=== PATIENT | male | born 1930 | race Caucasian/White ===

== ENCOUNTER 2018-09-03 07:03 | Inpatient (IN) ==
[2018-09-03] MEDS ORDERED: Metoprolol Tartrate 25 MG Tablet PO ONE (08:00)
[2018-09-03] MEDS ORDERED: Chlorhexidine Gluconate 2% 1 Pack (2 Cloths) TOPICAL ONE (08:00)
[2018-09-03] MEDS ORDERED: Sodium Chlor 0.9% Inj 500 ML IV.CONT ONE (08:00)
[2018-09-03] MEDS ORDERED: Protamine Sulfate Inj 50 MG/5 ML Vial ONE ×2 (08:15→10:33)
[2018-09-03] MEDS ORDERED: Heparin 10,000 UNITS/10 ML Vial (for IV use) ONE (08:15)
[2018-09-03] MEDS ORDERED: ceFAZolin 2 GM Premix Inj 2 GM/50 ML PIGGYBACK IV.SIG ONE (08:15)
[2018-09-03] MEDS ORDERED: Heparin/NS PF Inj 500 ML ONE (08:15)
--- NOTE | 2018-09-03 08:36 | P.PNVS ---
- Pre-operative Note Planned Procedure: EVAR Interval History: Pt has been feeling well, no changes that would preclude OR. Labs: Hct 36 plt 173 INR 1.2 cr 1.6 Blood: T&S EKG: no changes Imaging: CT reviewed Orders: NPO Ancef 2gIV OCTOR Post-operative Destination: PACU Consent: Informed consent has been obtained from Db Tena. I have explained the procedure in detail and discussed the risks, benefits, and potential complications. All questions have been answered. Patient Contact Information: Daughter [phone]
[2018-09-03] MEDS ORDERED: Iohexol 300 MG/ML 50 ML Vial (for Rad Diag) IVCONTRAST ONE ×2 (10:38→10:39)
[2018-09-03] MEDS ORDERED: Bisacodyl 10 MG Supp RECTAL PRN (10:45)
--- NOTE | 2018-09-03 10:45 | P.OP ---
- Preoperative Diagnosis (1) AAA (abdominal aortic aneurysm) without rupture - Postoperative Diagnosis (1) AAA (abdominal aortic aneurysm) without rupture Date of procedure: 09/03/18 Procedure: 1. EVAR ([id number]) 2. B DIRECTOR OF LEADERSHIP DEVELOPMENT Perclose (20F R and 14F L) Implants: Feusd 28x96, 16x90, 24x74 Anesthesia: GETA Surgeon: Kevin Lewis MD Program Eligibility Specialist: Abhi Patton Estimated blood loss (mL): 30 IV fluids (mL): 1,600 Urine output (mL): 220 Pathology: none sent Operation and Findings: successful EVAR + Doppler signals B LE after EVAR
[2018-09-03] MEDS ORDERED: fentaNYL Citrate Inj 100 MCG/2 ML Ampul ONE (11:04)
[2018-09-03] MEDS ORDERED: *morphine SULFATE 4 MG/ML PERIprocedure ONLY ONE (13:03)
--- NOTE | 2018-09-03 13:07 | MP ---
cc: Kevin Lewis MD DATE OF OPERATION: 09/03/2018 PREOPERATIVE DIAGNOSIS: Abdominal aortic aneurysm. POSTOPERATIVE DIAGNOSIS: Abdominal aortic aneurysm. PROCEDURE: 1. Endovascular aneurysm repair (EVAR) with [id number]-oidww device in 3 components. 2. Right common femoral artery percutaneous access with a 20-Gambian sheath. 3. Left pelvic femoral artery access with a 14-Gambian sheath. ATTENDING SURGEON: Kevin Lewis MD PRODUCTION CLOTH CUTTER SURGEON: Abhi Patton MD ANESTHESIA: General. INDICATION: Mr. Tena is an 88-year-old gentleman with a nearly 8 cm abdominal aortic aneurysm that appears amenable to endovascular repair. He was taken to the operating room for treatment. DESCRIPTION OF PROCEDURE: Informed consent was obtained from the patient, he was taken to the operating room and placed supine on the operating table. An appropriate timeout was taken to ensure the patient's identity, operative site, and planned procedure. The administration of 2 grams of Ancef was initiated prior to the skin incision, which we discontinued after a single preoperative dose. Everyone in the room agreed with the time out and we proceeded. He was prepped from his nipples to his knees. A 21-gauge micropuncture needle was used to access both common femoral arteries. This was exchanged using Seldinger technique for a micropuncture sheath, through which a 5-Gambian sheath was used to dilate the skin, subcutaneous tract, and arteriotomy. Two Perclose ProGlide sutures were inserted and tagged, but not tied down. These will be used later. A short 8-Gambian 10 cm sheath was used on the right-hand side and an 8-Gambian 25 cm sheath was used on the left-hand side. The patient was then heparinized. The STORQ wires were advanced to the proximal descending aorta and exchanged for Lunderquist wires. A straight flush marker catheter was placed on the left and the aortogram was obtained. The main device, which was a Amprius-AppLovin 28 x 96 was selected and prepped in standard fashion. The 8-Gambian sheath on the right was removed. Ibis dilators were used to dilate the skin, subcutaneous tract and arteriotomy, and the main device was inserted, oriented appropriately so the contralateral gate expanded on the patient's left-hand side. Interval angiography was performed and the device was deployed down the contralateral gate. Again, interval angiography was performed, which located the renal arteries and the top cap was deployed. A glidewire was then introduced through the flushed catheter on the left, and the flush catheter was exchanged for a Cobra catheter and ultimately a Vanshee catheter was used to cannulate the contralateral gate. This was confirmed angiographically and a Lunderquist wire was placed through this. A marker catheter was then placed and this identified the left hypogastric artery. The contralateral limb was then selected to be a 16 x 90. The 8-Gambian sheath was removed and Ibis dilators were used to tie the skin, subcutaneous tract, arteriotomy up to the 14-Gambian sheath. Then, the contralateral limb, which was a 16 x 90 was introduced so the bottom of the limb was proximal to the epigastric artery. Takeoff device was deployed without difficulty. The remainder of the main device was deployed and the top cap was recaptured. The delivery system was removed, leaving the 20-Gambian sheath in place in the right groin. A flush catheter was then placed and an angiogram was performed, which located the right hypogastric artery. The right limb, which was a 24 x 74 was introduced and deployed so the bottom of the stent was proximal to the hypogastric artery. The catheter and the delivery system was removed, leaving the 20-Gambian sheath introduced in the artery. Proximal and distal ends, as well as and junctions were angioplastied. A completion angiogram was obtained. The wire, catheter, and sheath were removed. The groins were closed by tying down the Perclose sutures, providing hemostasis in the groin and Doppler signals in the feet. The heparin was reversed. Protamine and 4-0 Monocryl was then placed in both groins. Sponge and needle counts were correct at the end of the case. I was present, scrubbed, and performed the entire procedure. MD MICHEAL Lima/tom/adiel , 11:16 AM , 11:25 AM CHRISTY
[2018-09-03] MEDS ORDERED: Morphine Sulfate Inj 2 MG/ML Vial IV.PUSH PRN (14:00)
[2018-09-03] MEDS: Senna/Docusate Sodium 8.6/50 MG Tablet PO SCH (23:24)
[2018-09-04 00:55] VITALS: RESP 16
[2018-09-04 04:17] LABS: Hematocrit 33.3 % (39.0-51.0); Hemoglobin 10.8 gm/dL (13.0-17.0); Mean Corpuscular HGB Conc 32.4 % (32.0-36.0); Mean Corpuscular Hemoglobin 28.4 pg (27.0-34.0); Mean Corpuscular Volume 87.6 fL (80.0-100.0); Mean Platelet Volume 8.5 fL (7.0-11.0); Platelet Count 164 th/mm3 (150-450); Red Blood Count 3.79 mil/mm3 (4.50-5.90); White Blood Count 12.5 th/mm3 (4.0-11.0)
[2018-09-04 04:38] LABS: Calcium 8.3 mg/dL (8.5-10.1); Carbon Dioxide 26.3 meq/L (21.0-32.0); Potassium 4.8 meq/L (3.5-5.1)
--- NOTE | 2018-09-04 07:39 | P.PNVS ---
Subjective Post Op Day #: 1 Procedure: EVAR with B SPEECH AND LANGUAGE SPECIALIST percutaneous access Subjective/Hospital Course: looks great mary po no groin pain + voiding since Chahal out Objective Vital Signs / I&O: Vital Signs 09/03/18 08:02 09/03/18 10:58 09/03/18 11:00 Temperature 97 F L 97.4 F L Pulse Rate 70 67 66 Respiratory Rate 16 20 19 Blood Pressure 153/74 H 126/60 126/59 L Pulse Oximetry 98 99 100 09/03/18 11:15 09/03/18 11:30 09/03/18 11:35 Temperature Pulse Rate 60 56 L Respiratory Rate 20 15 Blood Pressure 133/63 133/64 Pulse Oximetry 100 100 99 09/03/18 11:45 09/03/18 12:00 09/03/18 13:00 Temperature Pulse Rate 55 L 59 L 58 L Respiratory Rate 18 14 17 Blood Pressure 136/67 136/64 146/67 H Pulse Oximetry 100 100 95 09/03/18 13:34 09/03/18 14:00 09/03/18 14:27 Temperature 97.1 F L Pulse Rate 59 L 62 Respiratory Rate 18 17 Blood Pressure 136/63 140/65 Pulse Oximetry 99 99 99 09/03/18 16:00 09/03/18 20:00 09/04/18 00:00 Temperature 97.9 F 97.7 F 97.7 F Pulse Rate 74 64 85 Respiratory Rate 17 16 16 Blood Pressure 106/60 152/75 H 149/70 H Pulse Oximetry 96 98 97 09/04/18 03:14 Temperature Pulse Rate Respiratory Rate 16 Blood Pressure Pulse Oximetry Intake & Output 09/03/18 09/04/18 09/04/18 18:59 06:59 18:59 Intake Total 1650 / 1650 Output Total 650 / 650 Balance 1000 / 1000 Weight 88.167 kg 88.5 kg Intake: IV 1050 / 1050 Heparin/NS PF Inj 500 ML @ 0 0 / 0 mls/hr .ROUTE .STK-MED ONE Rx#: [id number] LR 1000 mL Inj 1,000 ML @ 30 1000 / 1000 mls/hr IV.CONT .Q24H ONE Rx#: [id number] Ancef 2 GM Premix Inj 2 gm In 50 / 50 50 ml @ 0 mls/hr IV.SIG .STK- MED ONE Rx#:[id number] Anesthesia Amount 600 / 600 Output: Estimated Blood Loss 30 / 30 Urine Amount (Catheter) 620 / 620 Indwelling Urethral Catheter 620 / 620 Other: Date of Last Bowel Movement 09/03/18 Weight On Admission 86.9 kg Exam: sitting in bed, comfortably B groins soft, NT feet warm Laboratory Results - last 24 hr 09/03/18 09/03/18 09/04/18 07:40 17:55 02:55 WBC 12.5 H RBC 3.79 L Hgb 10.8 L Hct 33.3 L MCV 87.6 MCH 28.4 MCHC 32.4 RDW 14.0 Plt Count 164 MPV 8.5 Sodium Potassium Chloride Carbon Dioxide Anion Gap BUN Creatinine Estimated GFR POC Glucose 144 H Random Glucose Calcium Blood Type B Negative Antibody Screen Negative 09/04/18 02:55 WBC RBC Hgb Hct MCV MCH MCHC RDW Plt Count MPV Sodium 138 Potassium 4.8 Chloride 103 Carbon Dioxide 26.3 Anion Gap 9 BUN 26 H Creatinine 1.57 H Estimated GFR 42 L POC Glucose Random Glucose 122 H Calcium 8.3 L Blood Type Antibody Screen Assessment and Plan - Assessment (1) AAA (abdominal aortic aneurysm) without rupture Code(s): I71.4 - Abdominal aortic aneurysm, without rupture Status: Acute - Plan POD#1 EVAR looks great d/c today and RTC 1m with CTA A/P - will arrange Discharge Planning: today can resume all pre-op meds today and oral hypoglycemic tomorrow
[2018-09-04] MEDS: Senna/Docusate Sodium 8.6/50 MG Tablet PO SCH (08:20)
[2018-09-04] MEDS ORDERED: C E ZINC COPPER OMEGA3S LUT PO SCH (09:00)
[2018-09-04] MEDS ORDERED: Multivitamin/Minerals Therapeutic Tablet PO SCH (09:00)
[2018-09-04] MEDS ORDERED: Vitamin B Complex/Vitamin C Tablet PO SCH (09:00)
[2018-09-04] MEDS ORDERED: dilTIAZem CD 120 MG Capsule PO SCH (09:00)
[2018-09-04] MEDS ORDERED: [UNRECOGNIZED DRUG - OTHER] PO SCH (09:00)
--- NOTE | 2018-09-04 09:49 | P.DS ---
<Francisca Marie - Last Filed: 09/04/18 09:30> Discharge Summary - Admission Date 09/03/18 07:03 - Admission Diagnosis (1) AAA (abdominal aortic aneurysm) without rupture - Discharge Date 09/04/18 - Discharge Diagnosis (1) History of repair of aneurysm of abdominal aorta using endovascular stent graft Status: Acute (2) AAA (abdominal aortic aneurysm) without rupture Status: Acute - Summary Brief History from admission: 88/M with a Hx of an infrarenal AAA w/o rupture Procedure: EVAR with B CUSTOM DESIGNER percutaneous access Significant Findings: Palpable Distal pulses present B groins S/NT Pt w/o abdominal/back pain Abnormal Lab Results 09/03/18 09/04/18 09/04/18 17:55 02:55 02:55 WBC 12.5 H RBC 3.79 L Hgb 10.8 L Hct 33.3 L MCV 87.6 MCH 28.4 MCHC 32.4 RDW 14.0 Plt Count 164 MPV 8.5 Sodium 138 Potassium 4.8 Chloride 103 Carbon Dioxide 26.3 Anion Gap 9 BUN 26 H Creatinine 1.57 H Estimated GFR 42 L POC Glucose 144 H Random Glucose 122 H Calcium 8.3 L Hospital Course: 88M with a hx of asymptomatic AAA w/o rupture Pt s/p EVAR POD 0 Chahal removed pt voiding w/o difficulty Pt tolerating PO POD 1 Pt voiding Pt tolerating PO Pt w/o complaints of abdominal/back pain LE warm w/ motor intact Distal pulses palpable Pt clear for D/C Arranged o/p f/u in 4W with a surveillance CTA A/P - Discharge Instructions Any questions or concerns: Call [facility] at [facility] [phone] <Kevin Lewis - Last Filed: 09/04/18 10:00> Discharge Summary - Admission Date 09/03/18 07:03 - Admission Diagnosis (1) AAA (abdominal aortic aneurysm) without rupture - Summary Significant Findings: Abnormal Lab Results 09/03/18 09/04/18 09/04/18 17:55 02:55 02:55 WBC 12.5 H RBC 3.79 L Hgb 10.8 L Hct 33.3 L MCV 87.6 MCH 28.4 MCHC 32.4 RDW 14.0 Plt Count 164 MPV 8.5 Sodium 138 Potassium 4.8 Chloride 103 Carbon Dioxide 26.3 Anion Gap 9 BUN 26 H Creatinine 1.57 H Estimated GFR 42 L POC Glucose 144 H Random Glucose 122 H Calcium 8.3 L - Discharge Instructions Any questions or concerns: Call [facility] at [facility] [phone] Discharge Plan - Discharge Order Discharge Orders: Discharge Order (Routine); Ordered 09/04/18 Ordered By: Francisca Marie - Physicians Team Primary Care Provider: Sarah Crabtree Attending Provider: Kevin Lewis - Rxs /Orders / Referrals /Forms Prescriptions: Continue C,E,zinc,copper [id number] [Ocuvite Adult 50 Plus] 250-5-1 mg Capsule 1 cap PO DAILY diltiazem HCl 120 mg Tablet Extended Release 24 Hr 120 mg PO DAILY glyburide 5 mg Tablet 5 mg PO BID Qty: 0 RF: 0 iron fum,bv-eisxn-Jooxh,C no.9 [Integra Plus] 125 mg iron- 1 mg Capsule 1 cap PO DAILY losartan 100 mg Tablet 100 mg PO DAILY metoprolol succinate 50 mg Tablet Extended Release 24 Hr 50 mg PO DAILY rivaroxaban [Xarelto] 15 mg Tablet 15 mg PO QPM simvastatin 20 mg Tablet 20 mg PO QPM vitamin B complex Capsule 1 cap PO DAILY Referrals: Sarah Crabtree MD [Primary Care Provider] - See Instructions Kevin Lewis MD [Physician] - See Instructions (Your F/U appointment is scheduled on 10/05/18 at 1:30 A surveillance CTA A/P has been ordered- Please obtain prior to f/u visit ) - Discharge Instructions Patient Printed Instructions: Acute Wound Care (DC), Endovascular Aneurysm Repair of Abdominal Aorta (DC) - Post Discharge Care Plan Care Plan Goals: D/C Instructions w Please call [phone] if you have any problems or have questions regarding your hospitalization. Diet: You may resume a regular diet as you were eating at home before your admission. Activity: Increase your activity level gradually. Keep surgical extremities elevated when at rest. This will help limit the swelling, bruising and discomfort normally present after surgery. Walking is a good form of light exercise. Go for a walk at least 3 times per day. No heavy lifting (lifting over 10 pounds) for at least 4 weeks from surgery. Check with your surgeon to ensure when you are cleared for heavy lifting and full-intensity exercising. Your strength will gradually improve. No driving or operating motorized vehicles while on prescription pain medications. No swimming until wounds fully healed. Return to work when cleared by /JESSE/3RD PRESSMAN. Bathing: Shower daily. Gently let soap and water run over your incision and pat dry. Do not scrub the incision/wound. Don't soak in a bath or submerge your incision in water until your incision is healed and evaluated by your physician at follow-up (usually two weeks). Wound Care: INCISION SITE CARE INSTRUCTIONS You may leave your incision open to air. Keep your incision clean and dry, unless showering. See above. Moisture near the incision will cause the wound to open. No lotions, creams, ointments, or powders on incisions until they are well- healed. If you have glue over the incision(s), allow it to fall off naturally in 1-3 weeks If present, gurjit/sutures will be removed 2-3 weeks after surgery during your follow-up clinic visit. If present, change dressing/bandage when soaked/soiled as needed. Observe wound daily, checking for signs and symptoms of infection including: foul odor, drainage from the incision, increased redness, increased pain at incision, or increased swelling. Pain Control: Expect post-operative pain for 1-4 weeks after surgery. Your pain will improve gradually. You may have been provided with a prescription for pain medication. Please take as directed, and be aware of side effects such as drowsiness, constipation and mild stomach discomfort. Pain pills on an empty stomach can cause nausea, so eat a small amount of food, such as crackers, when taking these pills. Take bibz-zsl-rmxwmzi stool softeners (Colace or Senna) with your prescribed pain medication. Acetaminophen (500mg every 6 hours) or Ibuprofen (400mg every 6 hours) may be used in conjunction with narcotics to relieve pain. DO NOT take more than 4 grams (4000mg) of Tylenol in one day, as this can harm your liver. DO NOT take ibuprofen IF: you have an allergy to non-steroidal anti-inflammatory medications , you are taking Coumadin, you have been told you have kidney problems, or you have a history of gastrointestinal bleeding or ulcers. DO NOT take more than 3.2 grams (3200mg) of ibuprofen in one day. You may also find relief from using heat packs or pads or ice packs. Bowel Regimen for Constipation: People who undergo surgery are likely to develop post-operative constipation. Exposure to narcotics and changes in diet, fluid intake, and physical activity are known contributors to constipation. We recommend routine stool softeners and /or laxatives after surgery for most patients. Start by taking one medication. You can increase as directed to relieve constipation. Stop taking these medications if you develop diarrhea. These medications are available over-the- counter and do not require a prescription: Colace is a stool softener. We recommend starting at 100mg orally twice per day as needed for soft stools and increase to a maximum of 200mg twice daily as needed. Senna is a laxative that works by keeping water in the intestine to help stool move along the intestinal tract. Take 1 tablet daily as needed for soft stool and increase to a maximum of 2 tablets twice daily as needed. Take Senna with two full glasses of water each time. Miralax, Dulcolax and Milk of Magnesia are other genz-mja-ycgbcpk laxatives that may be used as needed for post-operative constipation. Drink 6-8 glasses of water per day. Consume 15-30g of fiber per day: Metamucil powder, 1-2 tablespoons 1-2 times/day OR Benefiber powder, 2 tablespoons 4 times/day. Avoid straining. If you have any of the following symptoms please call immediately- [phone] Excessive swelling of the affected extremity. Sudden onset of severe or unusual pain in the affected extremity. Pain that gets worse or is not relieved by medication. Warmth, redness, or swelling in the skin around the wound. Foul drainage from incision. Extensive bruising or discoloration. Wound that opens up or pulls apart. Fever above 101.5F or shaking chills. Nausea or vomiting. Severe diarrhea or severe constipation. Dizziness or fainting. Chest pain, shortness of breath, or increased work of breathing. Weight gain >10lbs over 3-4 days. Inability to urinate for more than 6 hours. Cloudy or foul smelling urine. Urge to urinate more often than usual. Symptoms to Report to Your Doctor:Temperature 101, pain uncontrolled by medication, drainage or foul odor from incision, extensive bruising or discoloration, chest pain, shortness of breath, nausea, vomiting and dizziness.
[2018-09-04] MEDS ORDERED: Enoxaparin Inj 40 MG/0.4 ML Syringe SQ SCH (10:00)
[2018-09-04 10:13] VITALS: BP 128/61; TEMP 98.1; O2SAT 98
[2018-09-04 10:50] VITALS: PULSE 76
== END 2018-09-04 11:00 | disposition home or self-care (01) ==
LOC: HSDI 07:03 → HCPC 15:00
PROVIDERS: ADMIT Surgery; ATTEND Surgery